=== PATIENT | female | born 1965 | race Caucasian/White ===

== ENCOUNTER 2018-08-19 18:10 | Emergency (ER) | payer OTHER, SELFPAY ==
[~2018-08-19] VITALS: Ht 160 cm; Wt 81.0 kg
[2018-08-19 18:19] VITALS: BP 153/92
[2018-08-19] MEDS ORDERED: KETOROLAC 30 MG/1 ML ONE (18:38)
[2018-08-19] MEDS ORDERED: KETOROLAC 30 MG/1 ML IM ONE (19:00)
== END 2018-08-19 19:12 | disposition home or self-care (01) ==
LOC: ED 18:44
DX: M79.632 Pain in left forearm (principal); M25.521 Pain in right elbow; I10 Essential (primary) hypertension
CPT/HCPCS: 96372; 99283; J1885